=== PATIENT | male | born 1990 | race Caucasian/White ===

== ENCOUNTER 2020-07-26 09:13 | Inpatient (IN) | payer OTHER ==
[~2020-07-26] VITALS: Ht 182.9 cm; Wt 77.1 kg
--- NOTE | 2020-07-26 09:13 | NUR ---
PT BIBSELF C/O ABDOMINAL PAIN AND N/V. PT IS AAOX4, NOT IN RESPIRATORY DISTRESS, HOOKED TO MONITOR, KEPT RESTED AND COMFORTABLE. WILL CONTINUE TO MONITOR.
--- NOTE | 2020-07-26 09:22 | NUR ---
URINE SPECIMEN COLLECTED AND SENT TO LAB.
--- NOTE | 2020-07-26 09:25 | NUR ---
IV LINE ESTABLISHED BLOOD DRAWN AND SENT TO LAB.
--- NOTE | 2020-07-26 09:30 | NUR ---
AT BEDSIDE FOR EVAL.
[2020-07-26] MEDS ORDERED: HYDROMORPHONE 1 MG/1 ML DISP.SYRIN ONE (09:36)
[2020-07-26] MEDS ORDERED: ONDANSETRON HCL/PF 4 MG/2 ML VIAL ONE (09:36)
[2020-07-26 09:39] LABS: BASOPHILS % (AUTO) 0.4 % (0.0-2.0); EOSINOPHILS % (AUTO) 1.5 % (0.0-6.0); HEMATOCRIT 45 % (39-51); HEMOGLOBIN 14.5 g/dL (13.5-17.5); LYMPHOCYTES # (AUTO) 1.2 /CMM (0.8-4.8); MEAN CORPUSCULAR HGB CONC 33 g/dl (31.0-36.0); MEAN CORPUSCULAR VOLUME 83 fL (80-96); MONOCYTES # (AUTO) 0.4 /CMM (0.1-1.30); MONOCYTES % (AUTO) 6.2 % (2.0-12.0); NEUTROPHILS # (AUTO) 4.8 /CMM (1.8-8.9); NEUTROPHILS % (AUTO) 72.9 % (43.0-81.0); PLATELET COUNT (AUTO) 186 /CMM (150-450); RED BLOOD CELL COUNT(AUTO) 5.34 MIL/uL (4.5-6.0); WHITE BLOOD COUNT (AUTO) 6.6 K/uL (4.3-11.0)
[2020-07-26 09:46] LABS: CALCIUM, SERUM 9.2 mg/dL (8.5-10.1); POTASSIUM 3.9 mmol/L (3.5-5.1)
[2020-07-26 09:51] LABS: ALBUMIN 4.1 g/dL (3.4-5.0); BILIRUBIN,DIRECT 0.2 mg/dL (0.0-0.2); BILIRUBIN,TOTAL 0.7 mg/dL (0.2-1.0); TOTAL PROTEIN, SERUM 8.1 g/dL (6.4-8.2)
[2020-07-26] MEDS ORDERED: IOHEXOL-300 100 ML VIAL IV ONE (09:59)
[2020-07-26] MEDS ORDERED: IV NS 0.9% 250 ML IV ONE (09:59)
[2020-07-26] MEDS ORDERED: ONDANSETRON HCL/PF 4 MG/2 ML VIAL IVP ONE (10:00)
[2020-07-26] MEDS ORDERED: HYDROMORPHONE INJ 2 MG/ML DISP.SYRIN IV ONE (10:00)
[2020-07-26] MEDS ORDERED: IV NS 0.9% 1,000 ML BAG IV ONE (10:00)
[2020-07-26] MEDS ORDERED: KETOROLAC TROMETHAMINE INJ 30 MG/ML VIAL ONE (10:14)
[2020-07-26] MEDS ORDERED: LIDOCAINE VISCOUS 2% UD 15 ML UDC ONE (10:14)
[2020-07-26] MEDS ORDERED: MAG HYDROX/AL HYDROX/SIMETH 30 ML UDC ONE (10:14)
[2020-07-26] MEDS ORDERED: KETOROLAC TROMETHAMINE INJ 30 MG/ML VIAL IV ONE (10:30)
--- NOTE | 2020-07-26 11:26 | NUR ---
CALLED DR VICENTE FOR PEER TO PEER
[2020-07-26] MEDS ORDERED: PIPERACILLIN /TAZOBACTAM 3.375 G in IV D5W 50 ML IV ONE ×2 (11:30→14:00)
--- NOTE | 2020-07-26 11:30 | NUR ---
CALLED [email or web address]. CORPORATE STRATEGIST WAS PAGED.
--- NOTE | 2020-07-26 11:39 | NUR ---
CALLED LAB FOR COVID KIT
[2020-07-26] MEDS ORDERED: ZOLPIDEM TARTRATE 5 MG TABLET PO PRN (12:00)
[2020-07-26] MEDS ORDERED: MAGNESIUM HYDROXIDE 30 ML UDC PO PRN (12:00)
[2020-07-26] MEDS ORDERED: MAG HYDROX/AL HYDROX/SIMETH 30 ML UDC PO PRN (12:00)
[2020-07-26] MEDS ORDERED: HYDROCODONE/APAP 5/325MG TABLET PO PRN (12:00)
[2020-07-26] MEDS ORDERED: ACETAMINOPHEN 325 MG TABLET PO PRN (12:00)
[2020-07-26] MEDS ORDERED: Z GUARD REMEDY 2 OZ OINT TP PRN (12:00)
[2020-07-26] MEDS ORDERED: ONDANSETRON HCL/PF 4 MG/2 ML VIAL IVP PRN (12:00)
--- NOTE | 2020-07-26 12:01 | NUR ---
CALLED PHARMACY FOR IV ANTIBIOTIC.
--- NOTE | 2020-07-26 12:32 | NUR ---
COVID SPECIMEN OBTAINED AND SENT TO LAB.
--- NOTE | 2020-07-26 12:36 | NUR ---
CALLED [facility] FOR MS BED
--- NOTE | 2020-07-26 13:31 | NUR ---
Received report from LAB: [id number]
--- NOTE | 2020-07-26 13:44 | NUR ---
REPORT GIVEN TO GEORGE QUINTEROS FOR [facility].
--- NOTE | 2020-07-26 14:15 | NUR ---
MS RN NOTES PATIENT ARRIVED TO UNIT VIA GURNEY FROM THE EMERGENCY DEPARTMENT. AMBULATORY WITH STEADY GAIT. ALERT AND ORIENTED X 4, ON ROOM AIR WITH NO SIGNS OF RESPIRATORY DISTRESS, WITH EVEN NON-LABORED BREATHING, AND NO SOB NOTED. PATIENT SKIN WARM AND DRY TO TOUCH. IV ACCESS INTACT AND PATENT ON RIGHT AC, 18 GAUGE SALINE LOCK. PATIENT DENIES PAIN OR DISCOMFORT AT THIS TIME, AND NAUSEA AT THIS TIME. PROVIDED COMFORT MEASURES TO PATIENT. SAFETY PRECAUTIONS IMPLEMENTED WITH BED LOCKED, BED IN THE LOWEST POSITION, BILATERAL SIDE RAILS UP, AND CALL LIGHT WITHIN EASY REACH. WILL CONTINUE TO MONITOR PATIENT.
[2020-07-26] MEDS: IV NS 0.9% 1,000 ML IV PRN (14:48)
--- NOTE | 2020-07-26 14:50 | NUR ---
MS RN NOTES PATIENT REQUESTING ICE CHIPS, INFORMED GAVIN AMBROSE, HOSPITALIST, AND OKAY TO GIVE ICE CHIPS TO PATIENT. WILL CONTINUE TO MONITOR.
[2020-07-26 15:03] VITALS: BP 118/73
[2020-07-26] MEDS: PIPERACILLIN /TAZOBACTAM 3.375 G in IV D5W 100 ML IV SCH (17:31)
--- NOTE | 2020-07-26 18:29 | NUR ---
MS RN NOTES PATIENT IN BED RESTING COMFORTABLY. ALERT AND ORIENTED X 4. ON ROOM AIR WITH NO SIGNS OF RESPIRATORY DISTRESS AT THIS TIME, WITH EVEN NON-LABORED BREATHING. MET ALL OF PATIENT'S NEEDS. IV ACCESS REMAIN INTACT AND PATENT CURRENTLY INFUSING NORMAL SALINE AT 90ml/hr. PATIENT DENIES ANY PAIN OR DISCOMFORT AT THIS TIME. NO NAUSEA PRESENT AT THIS TIME. SAFETY PRECAUTIONS IMPLEMENTED WITH BED LOCKED, BED IN THE LOWEST POSITION, BILATERAL SIDE RAILS UP, AND CALL LIGHT WITHIN EASY REACH OF THE PATIENT. WILL ENDORSE PLAN OF CARE TO UPCOMING NURSE.
--- NOTE | 2020-07-26 19:00 | NUR ---
MS/RN OPENING NOTES: RECEIVED PATIENT STABLE IN BED RESTING COMFORTABLY. A/O X 4. SATURATING WELL ON ROOM AIR WITH NO SOB NOTED. NO SIGNS OF RESPIRATORY DISTRESS AT THIS TIME, WITH EVEN NON-LABORED BREATHING. IV ACCESS REMAIN INTACT AND PATENT CURRENTLY INFUSING NS AT 90MLS/HR. NO COMPLAINS OF PAIN OR DISCOMFORT AT THIS TIME. NO NAUSEA PRESENT AT THIS TIME. SAFETY PRECAUTIONS IMPLEMENTED WITH BED LOCKED, BED IN THE LOWEST POSITION, BILATERAL SIDE RAILS UP, AND CALL LIGHT WITHIN EASY REACH OF THE PATIENT. WILL KEEP MONITORING PT ACCORDINGLY.
--- NOTE | 2020-07-26 19:49 | NUR ---
Patient resides locally alone. He is ambulatory and independent with adl's. No dc planning needs identified at this time. Addendum: 07/26/20 at 1948 by ROBERTO IRAHETA RN Amended: Links added.
[2020-07-26 20:00] VITALS: BP 127/72
--- NOTE | 2020-07-26 20:42 | NUR ---
MS/RN NOTES: PT REQUESTED MEDICATION FOR ANXIETY AND AGITATION. PER PT, "I ALWAYS GET ANXIETY EVERY TIME I STAY AT A HOSPITAL LIKE I CAN'T SLEEP." CONTACTED SPOT MAN DOCTOR, DR. FLEMING AND ORDERED XANAX 0.25MG Q12 PRN.
[2020-07-26] MEDS: ALPRAZOLAM 0.25 MG TABLET PO PRN (21:59)
[2020-07-27] MEDS: PIPERACILLIN /TAZOBACTAM 3.375 G in IV D5W 100 ML IV SCH ×2 (02:04→09:41)
[2020-07-27 06:55] LABS: BASOPHILS % (AUTO) 0.8 % (0.0-2.0); EOSINOPHILS % (AUTO) 3.1 % (0.0-6.0); HEMATOCRIT 41 % (39-51); HEMOGLOBIN 13.1 g/dL (13.5-17.5); LYMPHOCYTES # (AUTO) 1.2 /CMM (0.8-4.8); MEAN CORPUSCULAR HGB CONC 32 g/dl (31.0-36.0); MEAN CORPUSCULAR VOLUME 83 fL (80-96); MONOCYTES # (AUTO) 0.3 /CMM (0.1-1.30); MONOCYTES % (AUTO) 7.5 % (2.0-12.0); NEUTROPHILS # (AUTO) 2.2 /CMM (1.8-8.9); NEUTROPHILS % (AUTO) 57.6 % (43.0-81.0); PLATELET COUNT (AUTO) 162 /CMM (150-450); RED BLOOD CELL COUNT(AUTO) 4.92 MIL/uL (4.5-6.0); WHITE BLOOD COUNT (AUTO) 3.9 K/uL (4.3-11.0)
[2020-07-27 07:09] LABS: ALBUMIN 3.1 g/dL (3.4-5.0); CALCIUM, SERUM 8.5 mg/dL (8.5-10.1); CREATININE 0.9 mg/dL (0.6-1.3); MAGNESIUM 1.8 mg/dL (1.8-2.4); PHOSPHORUS 4.2 mg/dL (2.5-4.9); TOTAL PROTEIN, SERUM 6.4 g/dL (6.4-8.2)
--- NOTE | 2020-07-27 07:20 | NUR ---
MS RN NOTES PATIENT RECEIVED IN BED SLEEPING, EASILY AWAKEN BY NAME, ALERT AND ORIENTED X 4. ON ROOM AIR, WITH NO SIGNS OF RESPIRATORY DISTRESS AT THIS TIME, AND NO SOB NOTED. PATIENT SKIN WARM AND DRY TO TOUCH. IV ACCESS INTACT AND PATENT, CURRENTLY INFUSING NORMAL SALINE AT 90ml/hr. PATIENT DENIES ANY PAIN, DISCOMFORT, OR NAUSEA AT THIS TIME. PROVIDED COMFORT MEASURES TO PATIENT. SAFETY PRECAUTIONS IN PLACE WITH BED LOCKED, BED IN THE LOWEST POSITION, BILATERAL SIDE RAILS UP, AND CALL LIGHT WITHIN EASY REACH OF THE PATIENT. WILL CONTINUE TO MONITOR PATIENT.
[2020-07-27] MEDS: ALPRAZOLAM 0.25 MG TABLET PO PRN (11:19)
--- NOTE | 2020-07-27 11:19 | NUR ---
MS RN NOTES PATIENT STATING FEELING ANXIOUS AND REQUESTING ANTI-ANXIETY MEDICATION. ADMINISTERED PRN XANAX ORDERED. WILL CONTINUE TO MONITOR PATIENT.
[2020-07-27] MEDS: IV NS 0.9% 1,000 ML IV PRN (11:20)
[2020-07-27] MEDS: ZOSYN IVPB 3.375 G in IV D5W 50ml IV SCH ×3 (14:09→23:25)
[2020-07-27] MEDS: MORPHINE SULFATE INJ 2 MG/ML DISP.SYRIN IV PRN ×2 (15:34→21:13)
--- NOTE | 2020-07-27 15:35 | NUR ---
MS RN NOTES PATIENT COMPLAINING OF 5/10 SHARP ABDOMINAL PAIN, PATIENT REQUESTING PAIN MEDICATION. ADMINISTERED PRN MORPHINE ORDERED. WILL CONTINUE TO MONITOR PATIENT.
--- NOTE | 2020-07-27 18:23 | NUR ---
MS RN NOTES PATIENT IN BED RESTING COMFORTABLY WATCHING A SHOW. ALERT AND ORIENTED X 4. ON ROOM AIR WITH NO SIGNS OF RESPIRATORY DISTRESS AT THIS TIME, WITH EVEN NON-LABORED BREATHING, AND NO SOB NOTED. MET ALL OF PATIENT'S NEEDS. IV ACCESS REMAIN INTACT, ON RIGHT AC SALINE LOCK. PATIENT STATING MILD LEVEL OF PAIN OF 2/10, STATING MEDICATION HELP RELIEVE. NO NAUSEA OR VOMITING PRESENT AT THIS TIME. SAFETY PRECAUTIONS IMPLEMENTED WITH BED LOCKED, BED IN THE LOWEST POSITION, BILATERAL SIDE RAILS UP, AND CALL LIGHT WITHIN EASY REACH OF THE PATIENT. WILL ENDORSE PLAN OF CARE TO UPCOMING NURSE.
[2020-07-27 19:48] VITALS: BP 132/80
--- NOTE | 2020-07-27 19:53 | NUR ---
MS RN: RECEIVED PATIENT Patient in bed, awake. Per GEORGE Zhang/am Nurse, patient had anxiety earlier and wants to leave hosp. Patient calm behavior at this time, denies any discomfort. Discussed pain scale, pain medication indication and possible side effect, verbalized understanding. Fall precaution maintained.
[2020-07-27 20:44] VITALS: BP 132/8
--- NOTE | 2020-07-27 21:13 | NUR ---
ABDOMINAL PAIN C/o lower abdominal pain 07/11 denies nausea, no vomiting. PRN Morphine given, will reassess.
[2020-07-28] MEDS: ALPRAZOLAM 0.25 MG TABLET PO PRN (00:18)
--- NOTE | 2020-07-28 00:20 | NUR ---
ANXIETY Patient in bed, feels anxious, trying to sleep but uncomfortable taking Ambien, never had it before per patient. Denies shortness of breath. PRN Xanax given, fall precaution maintained. Will reassess.
--- NOTE | 2020-07-28 06:30 | NUR ---
MS RN: END OF SHIFT REPORT Patient in bed. IV antibiotic as scheduled, afebrile overnight. Abdominal pain managed with PRN Morphine with relief, no c/o N/V. Anxiety improved with PRN Xanax. Plan for dc home with PO antibiotic x 8 days. Will endorse to oncoming RN.
[2020-07-28] MEDS: ZOSYN IVPB 3.375 G in IV D5W 50ml IV SCH (06:35)
--- NOTE | 2020-07-28 07:15 | NUR ---
RN OPENING NOTES RECEIVED PATIENT IN BED RESTING. NOT IN ANY FORM OF DISTRESS. NO SOB. DENIED PAIN OR DISCOMFORT AT THIS TIME. KEPT PATIENT SAFE AND COMFORTABLE. BED IN LOW/LOCKED POSITION. SIDERAILS UPX2,CALL LIGHT IN REACH. WILL CONTINUE TO MONITOR ACCORDINGLY.
[2020-07-28 08:00] VITALS: BP 106/69
[2020-07-28] MEDS ORDERED: AMOX-430 PO (10:57)
[2020-07-28] MEDS ORDERED: PIPERACILLIN /TAZOBACTAM 3.375 G in IV D5W 50 ML IV ONE (12:00)
--- NOTE | 2020-07-28 12:40 | NUR ---
DISCHARGED PATIENT IN STABLE CONDITION ACCOMPANIED BY KIN ORTA. DC INSTRUCTIONS GIVEN, VERBALIZED UNDERSTANDING. DC PAPERWORK, EDUCATIONAL MATERIALS, AND PRESCRIPTIONS HANDED TO THE PATIENT. ALL BELONGINGS RETURNED, FORMS SIGNED. IV ACCESS REMOVED, NO COMPLICATIONS. REMOVED NAME BAND.
[2020-07-28] MEDS ORDERED: PIPERACILLIN /TAZOBACTAM 3.375 G in IV D5W 100 ML IV SCH (14:00)
== END 2020-07-28 12:40 | disposition home or self-care (01) | DRG 371 ==
LOC: ER 09:13 → MEDSG1 13:48 → MEDSG2 14:24
PROVIDERS: ADMIT Nurse Practitioner Acute Care; ATTEND Nurse Practitioner Acute Care
DX: A04.9 Bacterial intestinal infection, unspecified (principal); N17.0 Acute kidney failure with tubular necrosis; K35.80 Unspecified acute appendicitis; Z87.891 Personal history of nicotine dependence; E86.9 Volume depletion, unspecified; R94.5 Abnormal results of liver function studies
CPT/HCPCS: 36415; 80048-TC; 80053-TC; 80076-TC; 83690-TC; 83735-TC; 84100-TC; 85025-TC; 86850-TC; 87081-TC; C9803-CS; G0378; J1170; J1885; J2270; J2405; J2543; J7030; J7050; J7060; Q9967

== ENCOUNTER 2021-01-27 06:11 | Inpatient (IN) | payer BC, OTHER ==
[~2021-01-27] VITALS: Ht 180.3 cm; Wt 77.1 kg
[~2021-01-27 06:11] MED LIST: AMOX-430 PO
[2021-01-27] MEDS ORDERED: MORPHINE SULFATE INJ 2 MG/ML DISP.SYRIN IV ONE ×2 (06:30→09:00)
[2021-01-27] MEDS ORDERED: ONDANSETRON HCL/PF 4 MG/2 ML VIAL IVP ONE (06:30)
[2021-01-27] MEDS ORDERED: IV NS 0.9% 1,000 ML BAG IV ONE ×2 (06:30→09:00)
[2021-01-27] MEDS ORDERED: ONDANSETRON HCL/PF 4 MG/2 ML VIAL ONE (06:41)
[2021-01-27] MEDS ORDERED: MORPHINE SULFATE INJ 4 MG/ML DISP.SYRIN ONE ×2 (06:41→09:11)
[2021-01-27 07:02] LABS: BASOPHILS % (AUTO) 0.4 % (0.0-2.0); EOSINOPHILS % (AUTO) 0.3 % (0.0-6.0); HEMATOCRIT 42 % (39-51); HEMOGLOBIN 13.6 g/dL (13.5-17.5); LYMPHOCYTES # (AUTO) 0.9 /CMM (0.8-4.8); LYMPHOCYTES % (AUTO) 10.3 % (20.0-44.0); MEAN CORPUSCULAR HGB CONC 32 g/dl (31.0-36.0); MEAN CORPUSCULAR VOLUME 83 fL (80-96); MONOCYTES # (AUTO) 0.5 /CMM (0.1-1.30); MONOCYTES % (AUTO) 5.4 % (2.0-12.0); NEUTROPHILS # (AUTO) 7.4 /CMM (1.8-8.9); NEUTROPHILS % (AUTO) 83.6 % (43.0-81.0); PLATELET COUNT (AUTO) 195 /CMM (150-450); RED BLOOD CELL COUNT(AUTO) 5.09 MIL/uL (4.5-6.0); WHITE BLOOD COUNT (AUTO) 8.8 K/uL (4.3-11.0)
[2021-01-27 07:15] LABS: POTASSIUM 3.8 mmol/L (3.5-5.1)
--- NOTE | 2021-01-27 07:18 | NUR ---
pt resting calmly in bed, on phone, piv started, 1 l NS bolus in progess, MS and zofran administered.pt states pain has diminished, cat scan completed.
[2021-01-27 07:21] LABS: ALBUMIN 3.7 g/dL (3.4-5.0); BILIRUBIN,DIRECT 0.1 mg/dL (0.0-0.2); BILIRUBIN,TOTAL 0.4 mg/dL (0.2-1.0); TOTAL PROTEIN, SERUM 7.5 g/dL (6.4-8.2)
[2021-01-27] MEDS ORDERED: IOHEXOL-300 100 ML VIAL IV ONE (07:27)
[2021-01-27] MEDS ORDERED: IV NS 0.9% 250 ML IV ONE (07:27)
[2021-01-27] MEDS ORDERED: CT SWABBABLE VALVE TRANS SET 1 EA INFUS.SET MC ONE (07:27)
--- NOTE | 2021-01-27 07:49 | NUR ---
PATIENT IS BACK FROM CT.
--- NOTE | 2021-01-27 08:40 | NUR ---
PANEL ON-CALL PAGED
[2021-01-27] MEDS ORDERED: PIPERACILLIN /TAZOBACTAM 3.375 G in IV D5W 50 ML IV ONE (09:00)
--- NOTE | 2021-01-27 10:08 | NUR ---
RECEIVED RESULT FROM MAIN LAB: RAPID COVID NEGATIVE
--- NOTE | 2021-01-27 10:41 | NUR ---
PANEL PAINTER BARREL PAGED AGAIN.
--- NOTE | 2021-01-27 10:53 | NUR ---
BED 314-2
--- NOTE | 2021-01-27 11:00 | NUR ---
REPORT GIVEN TO ALISHA VAZQUEZ FOR [facility]
[2021-01-27] MEDS ORDERED: LIDOCAINE 1% INJ 50 ML MDV IJ ONE (11:16)
[2021-01-27] MEDS ORDERED: BUPIVACAINE MPF W/EPI 0.25% 30 ML VIAL ONE (11:16)
--- NOTE | 2021-01-27 11:19 | NUR ---
Patient AAO x4. Denies pain at this time. In room air and oxygen saturation is at 99%. Respiration regular and unlabored. The patient got picked up by OR staff going for a surgery. The patient left the ER in stable condition.
[2021-01-27] MEDS ORDERED: FENTANYL PF 100MCG/2ML AMPUL ONE ×3 (11:42→13:18)
[2021-01-27] MEDS ORDERED: SUCCINYLCHOLINE CHLORIDE 20 MG/ML VIAL ONE (11:43)
[2021-01-27] MEDS ORDERED: ROCURONIUM BROMIDE 50 MG/5 ML ONE (11:43)
[2021-01-27] MEDS ORDERED: MIDAZOLAM HCL 2 MG/2ML VIAL ONE (11:43)
[2021-01-27] MEDS ORDERED: ACETAMINOPHEN 325 MG TABLET PO PRN (12:30)
[2021-01-27] MEDS ORDERED: Z GUARD REMEDY 2 OZ OINT TP PRN (12:30)
[2021-01-27] MEDS ORDERED: MAG HYDROX/AL HYDROX/SIMETH 30 ML UDC PO PRN (12:30)
[2021-01-27] MEDS ORDERED: MAGNESIUM HYDROXIDE 30 ML UDC PO PRN (12:30)
[2021-01-27] MEDS ORDERED: ONDANSETRON HCL/PF 4 MG/2 ML VIAL IVP PRN (12:30)
[2021-01-27] MEDS ORDERED: ZOLPIDEM TARTRATE 5 MG TABLET PO PRN (12:30)
[2021-01-27 14:00] VITALS: BP 106/64
--- NOTE | 2021-01-27 14:10 | NUR ---
MS RN NOTE RECEIVED PT IN STABLE CONDITION. VITALS 110/62 HR 69. PT HAS MINIMAL PAIN, C/O FATIGUE. PT A/O X4. WILL CONTINUE TO MONITOR.
[2021-01-27] MEDS: IV NS 0.9% 1,000 ML IV SCH ×2 (14:40→22:30)
[2021-01-27] MEDS: PIPERACILLIN /TAZOBACTAM 3.375 G in IV D5W 100 ML IV SCH ×2 (15:37→23:21)
[2021-01-27] MEDS: HYDROCODONE/APAP 5/325MG TABLET PO PRN ×2 (15:37→20:13)
[2021-01-27 16:00] VITALS: BP 114/64
[2021-01-27] MEDS ORDERED: PIPERACILLIN /TAZOBACTAM 3.375 G in IV D5W 50 ML IV SCH (18:00)
[2021-01-27] MEDS: MORPHINE SULFATE INJ 2 MG/ML DISP.SYRIN IV PRN ×2 (18:04→23:20)
--- NOTE | 2021-01-27 18:45 | NUR ---
MS RN CLOSING NOTE PATIENT IN BED, RESTING, A/O X4. PATIENT C/O ABDOMINAL PAIN FROM APPENDECTOMY. LAST PAIN MED GIVEN - MORPHINE 2MG @1804. PATIENT IS ON ROOM AIR. NO DISTRESS NOTED. PATIENT IS BREATHING EVENLY AND UNLABORED. ENCOURAGED USE OF SPIROMETER Q2HR. IV IS IN RIGHT AC #18, PATENT AND INTACT, NS RUNNING @ 100ML/HR. IVPB RUNNING @ 25ML/HR Q8HR. PATIENT IS AMBULATORY. SAFETY PRECAUTIONS IMPLEMENTED, BED LOCKED AND IN LOWEST POSITION, SIDE RAILS UP X2, CALL LIGHT WITHIN REACH. WILL ENDORSE CONTINUATION OF CARE TO UPCOMING SHIFT.
[2021-01-27 20:38] VITALS: BP 115/73
--- NOTE | 2021-01-27 20:55 | NUR ---
NURSING NOTE PATIENT RECEIVED IN BED, ALERT AND ORIENTED, C/O PAIN 6/10 TO ABDOMINAL INCISIONS, NORCO PRN ADMINISTERED PER ORDERS, WELL TOLERATED. NO DIZZINESS WITH AMBULATION, NO NAUSEA. 3 INCISIONAL SITES NOTED TO ABDOMEN, NO DRAINAGE/SWELLING NOTED. BOWEL SOUNDS HYPOACTIVE, PATIENT DENIES ANY BM OR GAS YET. ENCOURAGED TO AMBULATE, CLEAR LIQUID DIET PROVIDED, PT ABLE TO TOLERATE JELLO. REMINDED TO USE CALL LIGHT FOR ANY ASSISTANCE. BED LOCKED, BED IN LOWEST POSITION. CALL LIGHT WITHIN REACH. WILL CONTINUE MONITORING CLOSELY AND CARRY OUT ACTIVE ORDERS.
[2021-01-28] MEDS: MORPHINE SULFATE INJ 2 MG/ML DISP.SYRIN IV PRN ×3 (04:54→15:55)
[2021-01-28 06:29] LABS: BASOPHILS % (AUTO) 0.4 % (0.0-2.0); EOSINOPHILS % (AUTO) 0.2 % (0.0-6.0); HEMATOCRIT 36 % (39-51); HEMOGLOBIN 11.8 g/dL (13.5-17.5); LYMPHOCYTES # (AUTO) 1.3 /CMM (0.8-4.8); LYMPHOCYTES % (AUTO) 17.9 % (20.0-44.0); MEAN CORPUSCULAR HGB CONC 33 g/dl (31.0-36.0); MEAN CORPUSCULAR VOLUME 83 fL (80-96); MONOCYTES # (AUTO) 0.5 /CMM (0.1-1.30); NEUTROPHILS # (AUTO) 5.4 /CMM (1.8-8.9); NEUTROPHILS % (AUTO) 74.5 % (43.0-81.0); PLATELET COUNT (AUTO) 198 /CMM (150-450); RED BLOOD CELL COUNT(AUTO) 4.36 MIL/uL (4.5-6.0); WHITE BLOOD COUNT (AUTO) 7.3 K/uL (4.3-11.0)
[2021-01-28] MEDS: HYDROCODONE/APAP 5/325MG TABLET PO PRN ×2 (06:41→13:36)
[2021-01-28 06:57] LABS: CALCIUM, SERUM 8.5 mg/dL (8.5-10.1); CREATININE 0.9 mg/dL (0.6-1.3); MAGNESIUM 1.8 mg/dL (1.8-2.4); PHOSPHORUS 4.1 mg/dL (2.5-4.9)
[2021-01-28 08:00] VITALS: BP 126/76
--- NOTE | 2021-01-28 08:00 | NUR ---
RN Opening note Received patient in bed AO x 4, patient s/p appendectomy and c/o pain ABD, night nurse given norco around 7 am and still c/o pain, morphine isn't due yet, explain patient regarding medication schedule and pt understanding. Skin is warm to touch keep clean/dry, intact IV site on left FA 18g. Respiratory even and unlabored on room air. Patient stated had passing gas through, will change to advanced diet. Kept elevated HOB for ensure airway and aspiration precaution also lower bed position with bed alarm on for safety. Call light within reach, will continue to monitor.
[2021-01-28] MEDS: PIPERACILLIN /TAZOBACTAM 3.375 G in IV D5W 100 ML IV SCH ×2 (08:03→15:54)
[2021-01-28] MEDS: IV NS 0.9% 1,000 ML IV SCH (08:03)
[2021-01-28 16:00] VITALS: BP 122/76
--- NOTE | 2021-01-28 17:59 | NUR ---
Patient discharge to home, given discharge instruction include prescription medication, side effect and follow up PCP dennis Wade in 1 week. Patient left facility escorted by staff to private car, in stable condition.
== END 2021-01-28 18:10 | disposition home or self-care (01) | DRG 340 ==
LOC: ER 06:13 → MED 11:02
PROVIDERS: ADMIT Family Medicine; ATTEND Family Medicine
PROC: 0DTJ4ZZ Resection of Appendix, Percutaneous Endoscopic Approach (ICD-10-PCS; principal; 2021-01-28)
DX: K35.32 Acute appendicitis with perforation, localized peritonitis, and gangrene, without abscess (principal); Z87.891 Personal history of nicotine dependence; E86.1 Hypovolemia; D64.9 Anemia, unspecified; Z20.822 Contact with and (suspected) exposure to COVID-19
CPT/HCPCS: 36415; 80048-TC; 80061-TC; 80076-TC; 83605-TC; 83690-TC; 83735-TC; 84100-TC; 85025-TC; 86850-TC; 87040-TC; 87081-TC; C9803; G0378; J0330; J2250; J2270; J2405; J2543; J3010; J3490; J7030; J7050; J7060; Q9967